=== PATIENT | female | born 1990 | race Caucasian/White ===

== ENCOUNTER 2020-11-23 04:31 | Emergency (ER) | payer MEDICAID ==
[~2020-11-23] VITALS: Ht 175.3 cm; Wt 68.2 kg
[~2020-11-23 04:31] MED LIST: CLIN-97 PO; IBUP-1984 PO; ONDA4TAB12 PO; PHEN-716 PO
[2020-11-23 04:35] VITALS: BP 111/71
== END 2020-11-23 04:51 ==
LOC: ER 04:31
DX: F10.129 Alcohol abuse with intoxication, unspecified (principal); R47.81 Slurred speech; F12.90 Cannabis use, unspecified, uncomplicated; Z72.89 Other problems related to lifestyle; Z86.14 Personal history of Methicillin resistant Staphylococcus aureus infection; Z79.2 Long term (current) use of antibiotics; Z79.899 Other long term (current) drug therapy; Y90.9 Presence of alcohol in blood, level not specified
CPT/HCPCS: 99283